=== PATIENT | female | born 1995 | race Two or more races ===

== ENCOUNTER 2024-05-06 11:17 | Outpatient (CLI) | payer OTHER | END 2024-05-06 11:20 | disposition home or self-care (01) | LOC: NUCLEAR 11:17 | PROVIDERS: ATTEND Internal Medicine Sports Medicine | DX: C73 Malignant neoplasm of thyroid gland (principal) ==

== ENCOUNTER → 2024-05-11 11:10 | Outpatient (CLI) | payer OTHER | END | disposition home or self-care (01) | LOC: NUCLEAR 11:10 | PROVIDERS: ATTEND Internal Medicine Sports Medicine | DX: C73 Malignant neoplasm of thyroid gland (principal) ==

== ENCOUNTER 2025-07-24 10:08 | Outpatient (CLI) | payer OTHER | END 2025-07-24 10:09 | disposition home or self-care (01) | LOC: NUCLEAR 10:08 | PROVIDERS: ATTEND Internal Medicine Sports Medicine | DX: C73 Malignant neoplasm of thyroid gland (principal) ==